=== PATIENT | female | born 1980 | race Hispanic/Latino ===

== ENCOUNTER 2017-11-14 21:32 | Emergency (ER) | payer BC ==
[~2017-11-14] VITALS: Ht 147.3 cm; Wt 70.0 kg
[~2017-11-14 21:32] MED LIST: CLARITIN10 MG PO; CONCEPT OB PO; FERROUS SULF325 M1 PO; KENALOG15 GM/TUBE EX; NO HOME MEDS; PHENERGAN SUP12.5 MG RE; VISTARIL25 MG PO; ZOFRAN ODT4 MG PO
[2017-11-14 22:43] LABS: HEMATOCRIT 36.5 % (37.0-47.0); HEMOGLOBIN 12.1 g/dl (12.0-16.0); IMMATURE GRANULOCYTES 0.4 % (0.0-1.0); MEAN CELL VOLUME 88.4 fL CALC (80.0-100.0); MEAN CORPUSCULAR HGB 29.3 pG CALC (26.0-32.0); MEAN CORPUSCULAR HGB CONC 33.2 g/L CALC (32.0-36.0); NEUT# 4.67 thou/uL (2.00-7.15); RED BLOOD COUNT 4.13 mill/uL (4.20-5.60); RED CELL DISTRI WIDTH 13.1 % (11.5-15.5)
[2017-11-14 22:44] LABS: URINE BILIRUBIN - DIPSTICK NEGATIVE (NEGATIVE); URINE BLOOD DIPSTICK NEGATIVE (NEGATIVE); URINE CLARITY SL CLOUDY; URINE COLOR YELLOW; URINE GLUCOSE - DIPSTICK NEGATIVE (NEGATIVE); URINE KETONE NEGATIVE (NEGATIVE); URINE LEUK ESTERASE NEGATIVE (NEGATIVE); URINE NITRITE - DIPSTICK NEGATIVE (Negative); URINE PH 6.5 (4.5-8.0); URINE PROTEIN - DIPSTICK NEGATIVE (NEG-TRACE); URINE SPECIFIC GRAVITY <=1.005; URINE UROBILINOGEN - DIPSTICK 0.2 E.U./dL (0.2)
[2017-11-14 22:51] LABS: ALKALINE PHOSPHATASE 95 u/l (38-126); ANION GAP 15 (6-22 (CALC)); BILIRUBIN, TOTAL 0.3 mg/dL (0.0-1.4); BUN 13 mg/dL (7-17); BUN/CREATININE RATIO 21 (12-20 (CALC)); CARBON DIOXIDE 26 mmol/l (22-30); CHLORIDE 103 mmol/l (95-108); CREATININE 0.6 mg/dL (0.5-1.0); GFR > 60 ML/MIN (>=60 (CALC)); GFR FOR AFR.AMER. > 60 ML/MIN (>=60 (CALC)); POTASSIUM 3.9 mmol/l (3.5-5.1); SGOT/AST 34 u/l (14-36); SGPT/ALT 47 u/l (9-52); SODIUM 140 mmol/l (137-146)
[2017-11-14 22:54] LABS: ALBUMIN 4.2 g/dL (3.2-5.0)
[2017-11-14 23:03] LABS: MYOGLOBIN 16 ng/mL (0 - 62)
[2017-11-14 23:19] VITALS: BP 109/73
== END 2017-11-14 23:23 | disposition home or self-care (01) | DRG 310 ==
LOC: ED 21:32
PROVIDERS: Emergency Medicine
DX: R00.2 Palpitations (principal); R06.00 Dyspnea, unspecified; R42 Dizziness and giddiness

== ENCOUNTER → 2018-08-15 | Outpatient (REF) | END | disposition home or self-care (01) | DRG 951 | LOC: LAB 06:40 | DX: Z00.00 Encounter for general adult medical examination without abnormal findings (principal); Z13.1 Encounter for screening for diabetes mellitus; Z13.220 Encounter for screening for lipoid disorders; Z13.29 Encounter for screening for other suspected endocrine disorder ==